=== PATIENT | female | born 1985 | race Caucasian/White ===

== ENCOUNTER 2017-07-04 09:32 | Emergency (ER) | payer OTHER ==
[~2017-07-04] VITALS: Ht 167.6 cm; Wt 81.7 kg
[2017-07-04 10:29] VITALS: BP 128/91
== END 2017-07-04 10:30 | disposition home or self-care (01) ==
LOC: M.ERS 09:32
DX: T74.21XA Adult sexual abuse, confirmed, initial encounter (principal); F17.210 Nicotine dependence, cigarettes, uncomplicated